=== PATIENT | female | born 1975 | race Two or more races ===

== ENCOUNTER 2023-03-31 11:19 | Day surgery (SDC) | payer OTHER ==
[2023-03-30 10:21] VITALS: BMI 24.7
[2023-03-31 13:14] VITALS: TEMP 98.2
[2023-03-31 13:16] VITALS: BP 123/80; PULSE 67; RESP 19
== END 2023-03-31 13:30 | disposition home or self-care (01) ==
LOC: FASU-ENDO 11:19
PROVIDERS: ATTEND Internal Medicine Gastroenterology
PROC: 0DB78ZX Excision of Stomach, Pylorus, Via Natural or Artificial Opening Endoscopic, Diagnostic (ICD-10-PCS; 2023-03-31)
PROC: 0DB48ZX Excision of Esophagogastric Junction, Via Natural or Artificial Opening Endoscopic, Diagnostic (ICD-10-PCS; 2023-03-31)
PROC: 0DB98ZX Excision of Duodenum, Via Natural or Artificial Opening Endoscopic, Diagnostic (ICD-10-PCS; principal; 2023-03-31 12:32)
DX: K21.00 Gastro-esophageal reflux disease with esophagitis, without bleeding (principal); K29.50 Unspecified chronic gastritis without bleeding; K25.9 Gastric ulcer, unspecified as acute or chronic, without hemorrhage or perforation
CPT/HCPCS: 88305-TC; 88342-TC

== ENCOUNTER 2023-04-20 10:13 | Emergency (ER) | payer OTHER ==
[2023-04-20 10:21] VITALS: TEMP 97.6; BMI 25.8
[2023-04-20] MEDS ORDERED: SODIUM CHLORIDE 0.9% 500 ML INFUS.BAG IV ONE (10:56)
[2023-04-20] MEDS ORDERED: ACETAMINOPHEN 1000 MG/100 ML BAG IVPB ONE (10:56)
[2023-04-20] MEDS ORDERED: METOCLOPRAMIDE HCL INJECTION 10 MG/2 ML VIAL IVPB ONE (10:56)
[2023-04-20] MEDS ORDERED: ACETAMINOPHEN INJECTION 100 ML IVPB ONE (11:02)
[2023-04-20] MEDS ORDERED: METOCLOPRAMIDE HCL INJECTION 10 MG/2 ML VIAL ONE (11:02)
[2023-04-20 11:46] LABS: BASO % 0.6 % (0-2.0); HEMATOCRIT 42.3 % (32.4-45.2); HEMOGLOBIN 14.6 GM/dL (10.7-15.3); LYMPH % 34.3 % (8-40); MCH 29.6 pg (25.7-33.7); MCHC 34.5 g/dl (32.0-36.0); MEAN CELL VOLUME 85.6 fl (80-96); MEAN PLT VOLUME 8.7 fl (7.5-11.1); MONO % 5.2 % (3.8-10.2); NEUT % 58.9 % (42.8-82.8); PLATELET COUNT 234 10^3/uL (134-434); RBC 4.94 M/mm3 (3.60-5.2); RDW 13.3 % (11.6-15.6); WHITE BLOOD COUNT 7.6 K/mm3 (4.0-10.0)
[2023-04-20 11:58] LABS: POTASSIUM 4.4 mmol/L (3.5-5.1)
[2023-04-20 12:00] LABS: ALBUMIN 3.9 g/dl (3.4-5.0); BLOOD UREA NITROGEN 10.7 mg/dL (7-18); CALCIUM 9.4 mg/dL (8.5-10.1); MAGNESIUM 2.1 mg/dL (1.8-2.4)
[2023-04-20 12:03] LABS: CREATININE 0.7 mg/dL (0.55-1.3)
[2023-04-20 12:05] LABS: BILIRUBIN,TOTAL 0.5 mg/dL (0.2-1); TOT PROT 7.4 g/dl (6.4-8.2)
[2023-04-20 13:45] VITALS: BP 128/70; PULSE 75; RESP 18
== END 2023-04-20 13:50 | disposition home or self-care (01) ==
LOC: JER 10:13
PROC: 3E033NZ Introduction of Analgesics, Hypnotics, Sedatives into Peripheral Vein, Percutaneous Approach (ICD-10-PCS; principal; 2023-04-20)
PROC: 3E033GC Introduction of Other Therapeutic Substance into Peripheral Vein, Percutaneous Approach (ICD-10-PCS; 2023-04-20)
DX: R51.9 Headache, unspecified (principal); R20.0 Anesthesia of skin
CPT/HCPCS: 36415; 70450-TC; 80053; 83735; 84703; 85025; 93005; 93010; 99285-25

== ENCOUNTER 2023-06-23 09:35 | Day surgery (SDC) | payer OTHER ==
[2023-06-11 15:30] VITALS: BMI 26.2
[2023-06-23] MEDS ORDERED: MIDAZOLAM HCL 2 MG/2 ML SINGLE DOSE VIAL ONE (11:46)
[2023-06-23 12:37] VITALS: PULSE 84; RESP 16; TEMP 97.4
[2023-06-23 12:48] VITALS: BP 108/72
== END 2023-06-23 13:24 | disposition home or self-care (01) ==
LOC: FASU-ENDO 09:35
PROVIDERS: ATTEND Internal Medicine Gastroenterology
PROC: 0DB68ZX Excision of Stomach, Via Natural or Artificial Opening Endoscopic, Diagnostic (ICD-10-PCS; 2023-06-23)
PROC: 0DJD8ZZ Inspection of Lower Intestinal Tract, Via Natural or Artificial Opening Endoscopic (ICD-10-PCS; principal; 2023-06-23 11:50)
DX: Z12.11 Encounter for screening for malignant neoplasm of colon (principal); K64.1 Second degree hemorrhoids; K29.50 Unspecified chronic gastritis without bleeding; B96.81 Helicobacter pylori [H. pylori] as the cause of diseases classified elsewhere; Z13.810 Encounter for screening for upper gastrointestinal disorder
CPT/HCPCS: 43239; G0121

== ENCOUNTER 2023-07-26 19:57 | Emergency (ER) | payer OTHER ==
[2023-07-26 20:12] VITALS: RESP 18; TEMP 98.4; BMI 26.2
[2023-07-26 20:46] VITALS: BP 133/81; PULSE 70
== END 2023-07-26 20:58 | disposition home or self-care (01) ==
LOC: JER 19:57
DX: I10 Essential (primary) hypertension (principal)
CPT/HCPCS: 93005; 93010; 99283-25

== ENCOUNTER → 2023-09-22 | Day surgery (SDC) | payer OTHER | END | disposition home or self-care (01) | LOC: JRADUS-SUR 09:56 → JLAB 09:56 → EDSTATUS 10:30 | PROVIDERS: ATTEND Physician Assistant | PROC: 0H9U3ZX Drainage of Left Breast, Percutaneous Approach, Diagnostic (ICD-10-PCS; principal; 2023-09-22) | DX: D24.2 Benign neoplasm of left breast (principal) | CPT/HCPCS: 19083; 87899; A4648 ==

== ENCOUNTER 2024-09-26 22:17 | Emergency (ER) | payer OTHER ==
[2024-09-26 22:40] VITALS: PULSE 100; RESP 18; TEMP 98.3; BMI 25.4
[2024-09-26] MEDS ORDERED: MAG HYDROX/AL HYDROX/SIMETH 30 ML UNIT-DOSE CUP ONE (23:04)
[2024-09-26 23:19] VITALS: BP 152/88
[2024-09-26] MEDS: MAG HYDROX/AL HYDROX/SIMETH 30 ML UNIT-DOSE CUP PO ONE (23:25)
[2024-09-26 23:26] LABS: HEMATOCRIT 42.1 % (32.4-45.2); HEMOGLOBIN 14.3 GM/dL (10.7-15.3); MCH 28.5 pg (25.7-33.7); MCHC 33.9 g/dl (32.0-36.0); MEAN PLT VOLUME 8.2 fl (7.5-11.1); PLATELET COUNT 199 10^3/uL (134-434); RBC 5.01 M/mm3 (3.60-5.2); WHITE BLOOD COUNT 9.7 K/mm3 (4.0-10.0)
[2024-09-26 23:47] LABS: POTASSIUM 3.8 mmol/L (3.5-5.1)
[2024-09-26 23:49] LABS: CALCIUM 9.4 mg/dL (8.5-10.1)
[2024-09-26 23:50] LABS: ALBUMIN 4.1 g/dl (3.4-5.0); BLOOD UREA NITROGEN 11.8 mg/dL (7-18)
[2024-09-26 23:53] LABS: CREATININE 0.8 mg/dL (0.55-1.3)
[2024-09-26 23:54] LABS: BILIRUBIN,TOTAL 0.3 mg/dL (0.2-1); TOT PROT 7.3 g/dl (6.4-8.2)
[2024-09-26 23:55] LABS: PH,URINE 6.5 (5.0-8.0); URINE APPEARANCE CLEAR; URINE BILIRUBIN NEGATIVE (NEGATIVE); URINE COLOR YELLOW; URINE GLUCOSE (UA) NEGATIVE (NEGATIVE); URINE KETONE NEGATIVE (NEGATIVE); URINE LEUK ESTERASE NEGATIVE (NEGATIVE); URINE NITRITE NEGATIVE (NEGATIVE); URINE PROTEIN NEGATIVE (NEGATIVE); URINE UROBILINOGEN 0.2 mg/dL (0.2-1.0)
[2024-09-27] MEDS ORDERED: ACETAMINOPHEN 325 MG TABLET (FP) ONE (00:23)
[2024-09-27] MEDS ORDERED: IBUPROFEN 400 MG TABLET (FP) PO ONE (00:24)
[2024-09-27] MEDS: IBUPROFEN 400 MG TABLET (FP) PO ONE (00:32)
[2024-09-27] MEDS: ACETAMINOPHEN 325 MG TABLET (FP) PO ONE (00:41)
== END 2024-09-27 00:43 | disposition home or self-care (01) ==
LOC: JER 22:17
DX: R07.9 Chest pain, unspecified (principal); M54.9 Dorsalgia, unspecified
CPT/HCPCS: 36415; 71045-TC-FY; 80053; 81003; 83690; 84484; 84703; 85027; 93005; 93010; 99285-25

== ENCOUNTER 2024-11-25 09:48 | Emergency (ER) | payer OTHER ==
[2024-11-25 10:08] VITALS: BP 137/92; PULSE 80; RESP 16; TEMP 98.2; BMI 23.6
[2024-11-25] MEDS ORDERED: ONDANSETRON 4 MG/2 ML VIAL ONE (10:50)
[2024-11-25] MEDS ORDERED: ACETAMINOPHEN INJECTION 100 ML ONE (10:50)
[2024-11-25] MEDS ORDERED: MAG HYDROX/AL HYDROX/SIMETH 30 ML UNIT-DOSE CUP ONE (10:50)
[2024-11-25] MEDS ORDERED: FAMOTIDINE 20 MG/50 ML IVPB 20 MG/50 ML MG IVPB ONE (10:50)
[2024-11-25] MEDS: ONDANSETRON 4 MG/2 ML VIAL IVPB ONE (11:10)
[2024-11-25] MEDS: ACETAMINOPHEN 1000 MG/100 ML BAG IVPB ONE (11:15)
[2024-11-25] MEDS: FAMOTIDINE 20 MG/50 ML IVPB 20 MG/50 ML MG IVPB ONE (11:15)
[2024-11-25] MEDS: MAG HYDROX/AL HYDROX/SIMETH 30 ML UNIT-DOSE CUP PO ONE (11:20)
[2024-11-25 11:35] LABS: BASO % 0.5 % (0-2.0); EOS % 1.7 % (0-4.5); HEMATOCRIT 41.8 % (32.4-45.2); LYMPH % 21.9 % (8-40); MCH 28.3 pg (25.7-33.7); MCHC 33.6 g/dl (32.0-36.0); MEAN CELL VOLUME 84.3 fl (80-96); MEAN PLT VOLUME 8.8 fl (7.5-11.1); MONO % 5.3 % (3.8-10.2); NEUT % 70.6 % (42.8-82.8); PLATELET COUNT 211 10^3/uL (134-434); RBC 4.96 M/mm3 (3.60-5.2); RDW 14.9 % (11.6-15.6); WHITE BLOOD COUNT 8.5 K/mm3 (4.0-10.0)
[2024-11-25 11:58] LABS: CALCIUM 9.7 mg/dL (8.5-10.1)
[2024-11-25 11:59] LABS: ALBUMIN 3.8 g/dl (3.4-5.0); BLOOD UREA NITROGEN 15.2 mg/dL (7-18)
[2024-11-25 12:02] LABS: CREATININE 0.9 mg/dL (0.55-1.3)
[2024-11-25 12:03] LABS: BILIRUBIN,TOTAL 0.6 mg/dL (0.2-1); TOT PROT 7.4 g/dl (6.4-8.2)
[2024-11-25 12:52] LABS: HIV INTERPRETATION NEGATIVE (NEGATIVE)
== END 2024-11-25 12:33 | disposition home or self-care (01) ==
LOC: JER 09:48
PROC: 3E033GC Introduction of Other Therapeutic Substance into Peripheral Vein, Percutaneous Approach (ICD-10-PCS; principal; 2024-11-25)
PROC: 3E033NZ Introduction of Analgesics, Hypnotics, Sedatives into Peripheral Vein, Percutaneous Approach (ICD-10-PCS; 2024-11-25)
PROC: 3E033GC Introduction of Other Therapeutic Substance into Peripheral Vein, Percutaneous Approach (ICD-10-PCS; 2024-11-25)
DX: K21.9 Gastro-esophageal reflux disease without esophagitis (principal); R07.89 Other chest pain; R10.13 Epigastric pain; R11.0 Nausea; R14.0 Abdominal distension (gaseous)
CPT/HCPCS: 36415; 71046-TC-FY; 80053; 83690; 83735; 84484; 85025; 86803; 87389; 93005; 93010; 99285-25; J0131